=== PATIENT | female | born 1995 | race Caucasian/White ===

== ENCOUNTER 2016-11-06 19:31 | Emergency (ER) | payer OTHER ==
[~2016-11-06] VITALS: Ht 160 cm; Wt 61.0 kg
[~2016-11-06 19:31] MED LIST: AMOXICILLIN500 MG PO; ASPIRIN EC81 MG PO; DOXYCYCL HYC100 MG PO; LORTAB 5/3255 MG PO; LORTAB5 PO; MACROBID100 MG PO; METHERGINE0.2 MG PO; NO; OB COMPLET2 PO; PRENATAL1 TA1 PO; ULTRAM50 M1 PO; ULTRAM50 MG OR
[2016-11-06 21:55] LABS: INFLUENZA A NONE DETECTED (NONE DETECT); INFLUENZA B NONE DETECTED (NONE DETECT)
[2016-11-06] MEDS ORDERED: CEPHALEXIN500 MG PO (22:01)
[2016-11-06 22:19] VITALS: BP 119/79
== END 2016-11-06 22:20 | disposition home or self-care (01) | DRG 153 ==
LOC: ED 19:31
PROVIDERS: Emergency Medicine
DX: J02.9 Acute pharyngitis, unspecified (principal); I88.9 Nonspecific lymphadenitis, unspecified; R50.9 Fever, unspecified; M54.2 Cervicalgia

== ENCOUNTER 2017-02-07 17:58 | Emergency (ER) | payer SELFPAY ==
[~2017-02-07] VITALS: Ht 160 cm; Wt 62.7 kg
[~2017-02-07 17:58] MED LIST changes: +CEPHALEXIN500 MG PO
[2017-02-07] MEDS ORDERED: ULTRAM50 M1 PO (19:45)
[2017-02-07 19:50] VITALS: BP 116/77
== END 2017-02-07 19:50 | disposition home or self-care (01) | DRG 563 ==
LOC: ED 17:58
DX: S39.012A Strain of muscle, fascia and tendon of lower back, initial encounter (principal); S30.0XXA Contusion of lower back and pelvis, initial encounter; W01.0XXA Fall on same level from slipping, tripping and stumbling without subsequent striking against object, initial encounter; Y92.009 Unspecified place in unspecified non-institutional (private) residence as the place of occurrence of the external cause

== ENCOUNTER 2017-06-25 15:24 | Emergency (ER) | payer SELFPAY ==
[~2017-06-25] VITALS: Ht 160 cm; Wt 61.4 kg
[2017-06-25] MEDS ORDERED: ASPIRIN 81 LOW81 MG (15:37)
[2017-06-25] MEDS ORDERED: PRENATA4 PO (15:37)
[2017-06-25 16:13] LABS: IMMATURE GRANULOCYTES 0.2 % (0.0-1.0); MEAN CELL VOLUME 85.7 fL CALC (80.0-100.0); MEAN CORPUSCULAR HGB 28.6 pG CALC (26.0-32.0); MEAN CORPUSCULAR HGB CONC 33.3 g/L CALC (32.0-36.0); NEUT# 2.98 thou/uL (2.00-7.15); RED BLOOD COUNT 4.55 mill/uL (4.20-5.60); RED CELL DISTRI WIDTH 13.2 % (11.5-15.5); URINE BILIRUBIN - DIPSTICK NEGATIVE (NEGATIVE); URINE BLOOD DIPSTICK SMALL (NEGATIVE); URINE COLOR YELLOW; URINE GLUCOSE - DIPSTICK NEGATIVE (NEGATIVE); URINE KETONE TRACE mg/dL (NEGATIVE); URINE LEUK ESTERASE NEGATIVE (NEGATIVE); URINE NITRITE - DIPSTICK NEGATIVE (Negative); URINE PROTEIN - DIPSTICK TRACE mg/dL (NEG-TRACE); URINE SPECIFIC GRAVITY 1.025; URINE UROBILINOGEN - DIPSTICK 0.2 E.U./dL (0.2)
[2017-06-25 16:15] LABS: URINE CLARITY CLEAR
[2017-06-25 16:29] LABS: URINE MUCUS FEW hpf (NONE-FEW); URINE SQUAMOUS EPITHELIAL CELL FEW EPI/hpf (0-FEW); URINE WBC 0-2 WBC/hpf (0-5)
[2017-06-25 16:31] LABS: ALKALINE PHOSPHATASE 39 u/l (38-126); ANION GAP 13 (6-22 (CALC)); BILIRUBIN, TOTAL 0.5 mg/dL (0.0-1.4); BUN 15 mg/dL (7-17); BUN/CREATININE RATIO 25 (12-20 (CALC)); CALCIUM 9.3 mg/dL (8.4-10.2); CARBON DIOXIDE 23 mmol/l (22-30); CHLORIDE 106 mmol/l (95-108); CREATININE 0.6 mg/dL (0.5-1.0); GFR > 60 ML/MIN (>=60 (CALC)); GFR FOR AFR.AMER. > 60 ML/MIN (>=60 (CALC)); GLUCOSE 95 mg/dL (65-105); POTASSIUM 3.7 mmol/l (3.5-5.1); SGOT/AST 17 u/l (14-36); SGPT/ALT 24 u/l (9-52); SODIUM 138 mmol/l (137-146); TOTAL PROTEIN 6.9 g/dL (6.3-8.2)
[2017-06-25 16:48] LABS: BETA-HCG, QUANT(RESULT NUMBER) 11886 mIU/mL
[2017-06-25 18:32] VITALS: BP 125/84
== END 2017-06-25 18:25 | disposition home or self-care (01) | DRG 779 ==
LOC: ED 15:24
PROVIDERS: Emergency Medicine
DX: O03.9 Complete or unspecified spontaneous abortion without complication (principal); R50.9 Fever, unspecified

== ENCOUNTER 2019-03-10 15:56 | Emergency (ER) | payer OTHER ==
[~2019-03-10] VITALS: Ht 160 cm; Wt 60.0 kg
[~2019-03-10 15:56] MED LIST changes: +ASPIRIN 81 LOW81 MG; +PRENATA4 PO
[2019-03-10 16:34] LABS: HEMATOCRIT 40.3 % (37.0-47.0); HEMOGLOBIN 13.3 g/dl (12.0-16.0); IMMATURE GRANULOCYTES 0.2 % (0.0-5.0); MEAN CELL VOLUME 86.5 fL CALC (80.0-100.0); MEAN CORPUSCULAR HGB 28.5 pG CALC (26.0-32.0); NEUT# 3.54 thou/uL (2.00-7.15); RED BLOOD COUNT 4.66 mill/uL (4.20-5.60)
[2019-03-10 16:41] LABS: ALBUMIN 4.1 g/dL (3.2-5.0); ALKALINE PHOSPHATASE 46 u/l (38-126); ANION GAP 14 (6-22 (CALC)); BILIRUBIN, TOTAL 0.5 mg/dL (0.0-1.4); BUN 9 mg/dL (7-17); BUN/CREATININE RATIO 18 (12-20 (CALC)); CARBON DIOXIDE 23 mmol/l (22-30); CHLORIDE 104 mmol/l (95-108); CREATININE 0.5 mg/dL (0.5-1.0); GFR > 60 ML/MIN (>=60 (CALC)); GFR FOR AFR.AMER. > 60 ML/MIN (>=60 (CALC)); POTASSIUM 3.8 mmol/l (3.5-5.1); SGOT/AST 18 u/l (14-36); SODIUM 137 mmol/l (137-146); TOTAL PROTEIN 6.9 g/dL (6.3-8.2)
[2019-03-10 17:23] LABS: BETA-HCG, QUANT(RESULT NUMBER) 72352 mIU/mL
[2019-03-10] MEDS ORDERED: PRENATAL 11 PO (18:25)
[2019-03-10 18:28] VITALS: BP 126/77
== END 2019-03-10 18:28 | disposition home or self-care (01) ==
LOC: ED 15:56
PROVIDERS: Family Medicine
DX: O20.9 Hemorrhage in early pregnancy, unspecified (principal); Z3A.01 Less than 8 weeks gestation of pregnancy

== ENCOUNTER 2019-04-20 14:47 | Emergency (ER) | payer OTHER ==
[~2019-04-20] VITALS: Ht 160 cm; Wt 56.4 kg
[~2019-04-20 14:47] MED LIST changes: +PRENATAL 11 PO
[2019-04-20] MEDS ORDERED: ASPIRIN81 MG PO (14:58)
[2019-04-20] MEDS ORDERED: [UNRECOGNIZED DRUG - OTHER] XX (14:59)
[2019-04-20 15:30] LABS: HEMATOCRIT 39.2 % (37.0-47.0); HEMOGLOBIN 13.3 g/dl (12.0-16.0); IMMATURE GRANULOCYTES 0.2 % (0.0-5.0); MEAN CELL VOLUME 85.4 fL CALC (80.0-100.0); MEAN CORPUSCULAR HGB CONC 33.9 g/L CALC (32.0-36.0); NEUT# 3.67 thou/uL (2.00-7.15); RED BLOOD COUNT 4.59 mill/uL (4.20-5.60); RED CELL DISTRI WIDTH 12.9 % (11.5-15.5)
[2019-04-20 15:45] LABS: URINE BILIRUBIN - DIPSTICK NEGATIVE (NEGATIVE); URINE BLOOD DIPSTICK TRACE-LYSED (NEGATIVE); URINE COLOR YELLOW; URINE GLUCOSE - DIPSTICK NEGATIVE (NEGATIVE); URINE KETONE TRACE mg/dL (NEGATIVE); URINE LEUK ESTERASE NEGATIVE (NEGATIVE); URINE NITRITE - DIPSTICK NEGATIVE (Negative); URINE PROTEIN - DIPSTICK NEGATIVE (NEG-TRACE); URINE UROBILINOGEN - DIPSTICK 0.2 E.U./dL (0.2)
[2019-04-20 15:50] LABS: ALBUMIN 3.7 g/dL (3.2-5.0); ALKALINE PHOSPHATASE 38 u/l (38-126); ANION GAP 11 (6-22 (CALC)); BILIRUBIN, TOTAL 0.4 mg/dL (0.0-1.4); BUN 11 mg/dL (7-17); BUN/CREATININE RATIO 28 (12-20 (CALC)); CARBON DIOXIDE 25 mmol/l (22-30); CHLORIDE 104 mmol/l (95-108); CREATININE 0.4 mg/dL (0.5-1.0); GFR > 60 ML/MIN (>=60 (CALC)); GFR FOR AFR.AMER. > 60 ML/MIN (>=60 (CALC)); POTASSIUM 3.7 mmol/l (3.5-5.1); SGOT/AST 19 u/l (14-36); SODIUM 137 mmol/l (137-146); TOTAL PROTEIN 6.9 g/dL (6.3-8.2)
[2019-04-20 17:44] VITALS: BP 99/63
== END 2019-04-20 17:44 | disposition home or self-care (01) ==
LOC: ED 14:47
PROVIDERS: Emergency Medicine
DX: O02.1 Missed abortion (principal)

== ENCOUNTER 2021-04-19 12:42 | Emergency (ER) | payer OTHER ==
[~2021-04-19] VITALS: Ht 160 cm; Wt 60.0 kg
[~2021-04-19 12:42] MED LIST changes: +ASPIRIN81 MG PO; +[UNRECOGNIZED DRUG - OTHER] XX
[2021-04-19 16:45] VITALS: BP 110/56
== END 2021-04-19 16:45 | disposition home or self-care (01) ==
LOC: ED 12:42
DX: U07.1 COVID-19 (principal)

== ENCOUNTER 2021-04-29 06:56 | Emergency (ER) | payer OTHER ==
[~2021-04-29] VITALS: Ht 160 cm; Wt 65.0 kg
[2021-04-29 07:48] VITALS: BP 126/91
== END 2021-04-29 07:48 | disposition home or self-care (01) ==
LOC: ED 06:56
DX: U07.1 COVID-19 (principal); F41.9 Anxiety disorder, unspecified; F32.9 Major depressive disorder, single episode, unspecified

== ENCOUNTER 2021-11-11 17:18 | Emergency (ER) | payer OTHER ==
[~2021-11-11] VITALS: Ht 160 cm; Wt 61.4 kg
[2021-11-11 20:29] VITALS: BP 109/73
[2021-11-11 20:30] VITALS: BP 97/68
[2021-11-11 20:57] VITALS: BP 100/72
[2021-11-11 21:01] LABS: HEMOGLOBIN 13.5 g/dl (12.0-16.0); MEAN CELL VOLUME 86.3 fL CALC (80.0-100.0); MEAN CORPUSCULAR HGB 28.4 pG CALC (26.0-32.0); MEAN CORPUSCULAR HGB CONC 32.9 g/dL CAL (32.0-36.0); NEUT# 4.51 thou/uL (2.00-7.15); RED BLOOD COUNT 4.75 mill/uL (4.20-5.60); RED CELL DISTRI WIDTH 13.1 % (11.5-15.5)
[2021-11-11 21:25] LABS: ALKALINE PHOSPHATASE 47 u/l (38-126); ANION GAP 13 (6-22 (CALC)); BUN 9 mg/dL (7-17); BUN/CREATININE RATIO 20 (12-20 (CALC)); CARBON DIOXIDE 22 mmol/l (22-30); CHLORIDE 104 mmol/l (95-108); CREATININE 0.4 mg/dL (0.5-1.0); GFR > 60 ML/MIN (>=60 (CALC)); GFR FOR AFR.AMER. > 60 ML/MIN (>=60 (CALC)); POTASSIUM 3.8 mmol/l (3.5-5.1); SGOT/AST 19 u/l (14-36); SODIUM 135 mmol/l (137-146); TOTAL PROTEIN 7.2 g/dL (6.3-8.2)
[2021-11-11 21:31] LABS: BILIRUBIN, TOTAL 0.6 mg/dL (0.0-1.4)
[2021-11-11 22:08] LABS: BETA-HCG, QUANT(RESULT NUMBER) 139340 mIU/mL
[2021-11-11 23:18] VITALS: BP 96/64
[2021-11-11 23:30] VITALS: BP 95/65
[2021-11-11] MEDS ORDERED: TRAMADOL HCL50 MG PO (23:39)
[2021-11-12 00:22] LABS: URINE BILIRUBIN - DIPSTICK NEGATIVE (NEGATIVE); URINE BLOOD DIPSTICK TRACE-INTACT (NEGATIVE); URINE COLOR YELLOW; URINE GLUCOSE - DIPSTICK NEGATIVE (NEGATIVE); URINE KETONE 40 mg/dL (NEGATIVE); URINE LEUK ESTERASE NEGATIVE (NEGATIVE); URINE NITRITE - DIPSTICK NEGATIVE (Negative); URINE PH 6.5 (4.5-8.0); URINE PROTEIN - DIPSTICK NEGATIVE (NEG-TRACE); URINE SPECIFIC GRAVITY 1.015; URINE UROBILINOGEN - DIPSTICK 0.2 E.U./dL (0.2)
[2021-11-12 00:30] VITALS: BP 107/75
== END 2021-11-12 00:35 | disposition home or self-care (01) ==
LOC: ED 17:18
PROVIDERS: Family Medicine
DX: O03.9 Complete or unspecified spontaneous abortion without complication (principal); F41.9 Anxiety disorder, unspecified

== ENCOUNTER → 2022-09-05 | Emergency (ER) | payer OTHER ==
[~2022-09-05] VITALS: Ht 160 cm; Wt 64.1 kg
[2022-09-05] VITALS (23 sets, daily range): BP systolic 91–109; BP diastolic 45–78
[~2022-09-05] MED LIST changes: +TRAMADOL HCL50 MG PO
[2022-09-05 10:34] LABS: BASO% 0.6 % (0-3); EOS% 2.5 % (0-8); HEMATOCRIT 37.2 % (37.0-47.0); HEMOGLOBIN 11.9 g/dl (12.0-16.0); IMMATURE GRANULOCYTES 0.1 % (0.0-5.0); LYMPH% 34.5 % (15-41); MEAN CELL VOLUME 83.2 fL CALC (80.0-100.0); MEAN CORPUSCULAR HGB 26.6 pG CALC (26.0-32.0); NEUT# 4.54 thou/uL (2.00-7.15); NEUT% 56.3 % (42-76); RED BLOOD COUNT 4.47 mill/uL (4.20-5.60); RED CELL DISTRI WIDTH 16.3 % (11.5-15.5)
[2022-09-05 10:53] LABS: ALKALINE PHOSPHATASE 37 u/l (38-126); ANION GAP 9 (6-22 (CALC)); BUN 10 mg/dL (7-17); BUN/CREATININE RATIO 18 (12-20 (CALC)); CARBON DIOXIDE 24 mmol/l (22-30); CHLORIDE 106 mmol/l (95-108); CREATININE 0.6 mg/dL (0.5-1.0); GFR FOR AFR.AMER. > 60 ML/MIN (>=60 (CALC)); GFR OTHER RACES > 60 ML/MIN (>=60 (CALC)); POTASSIUM 3.8 mmol/l (3.5-5.1); SGOT/AST 21 u/l (14-36); SODIUM 135 mmol/l (137-146); TOTAL PROTEIN 6.8 g/dL (6.3-8.2)
[2022-09-05 10:54] LABS: BILIRUBIN, TOTAL 0.2 mg/dL (0.0-1.4)
[2022-09-05 11:48] LABS: BETA-HCG, QUANT(RESULT NUMBER) 24693 mIU/mL
[2022-09-05 12:41] LABS: BASO% 0.3 % (0-3); EOS% 0.5 % (0-8); HEMATOCRIT 32.8 % (37.0-47.0); HEMOGLOBIN 10.4 g/dl (12.0-16.0); IMMATURE GRANULOCYTES 0.1 % (0.0-5.0); LYMPH% 12.3 % (15-41); MEAN CELL VOLUME 84.1 fL CALC (80.0-100.0); MEAN CORPUSCULAR HGB 26.7 pG CALC (26.0-32.0); MEAN CORPUSCULAR HGB CONC 31.7 g/dL CAL (32.0-36.0); MONO% 3.8 % (2-13); NEUT# 8.22 thou/uL (2.00-7.15); RED BLOOD COUNT 3.9 mill/uL (4.20-5.60); RED CELL DISTRI WIDTH 16.4 % (11.5-15.5)
== END | disposition short-term general hospital (02) ==
LOC: ED 10:06
PROVIDERS: Internal Medicine
DX: O03.6 Delayed or excessive hemorrhage following complete or unspecified spontaneous abortion (principal); F41.9 Anxiety disorder, unspecified